=== PATIENT | male | born 1940 | race Caucasian/White ===

== ENCOUNTER → 2017-05-03 | Outpatient (CLI) | payer MEDICARE, OTHER ==
[2017-05-03 12:36] LABS: BASOPHILS % (AUTO) 0.3 %; EOSINOPHILS # (AUTO) 0.1 10^3/uL (0.0-0.7); EOSINOPHILS % (AUTO) 1.6 %; HCT - HEMATOCRIT 43.2 % (42.0-52.0); HGB - HEMOGLOBIN 14.8 g/dL (14.0-18.0); LYMPHOCYTES # (AUTO) 0.7 10^3/uL (1.5-3.5); LYMPHOCYTES % (AUTO) 12.5 %; MEAN CORPUSCULAR HEMOGLOBIN 31.7 pg (27.0-31.0); MEAN CORPUSCULAR HGB CONC 34.2 g/dL (32.0-36.0); MEAN CORPUSCULAR VOLUME 92.6 fL (80.0-94.0); MEAN PLATELET VOLUME 9.7 fL (7.4-11.4); MONOCYTES # (AUTO) 0.5 10^3/uL (0.0-1.0); MONOCYTES % (AUTO) 7.9 %; NEUTROPHILS # (AUTO) 4.5 10^3/uL (1.5-6.6); NEUTROPHILS % (AUTO) 77.7 %; RED BLOOD COUNT 4.67 10^6/uL (4.70-6.10); RED CELL DISTRIBUTION WIDTH 13.3 % (12.0-15.0); UNCORRECTED WHITE BLOOD COUNT 5.8 x10^3/uL; WHITE BLOOD COUNT 5.8 x10^3/uL (4.8-10.8)
[2017-05-03 13:08] LABS: ALBUMIN/GLOBULIN RATIO 1.2 (1.0-2.2); BILIRUBIN,TOTAL 0.5 mg/dL (0.2-1.0); BUN - BLOOD UREA NITROGEN 17 mg/dL (6-20); CALCIUM 8.8 mg/dL (8.5-10.3); CARBON DIOXIDE - CO2 26 mmol/L (21-32); CHLORIDE 104 mmol/L (101-111); CHOL/HDL RATIO 2.4 (<5.0); CHOLESTEROL 119 mg/dL; CREATININE 0.8 mg/dL (0.6-1.2); GFR - MDRD 94 (>89); GLUCOSE 115 mg/dL (70-100); HDL CHOLESTEROL 49 mg/dL; LDL/HDL RATIO 1.2 (<3.6); POTASSIUM 3.9 mmol/L (3.5-5.0); SODIUM 136 mmol/L (135-145); TOTAL PROTEIN 6.8 g/dL (6.7-8.2); TRIGLYCERIDES 58 mg/dL; VLDL CHOLESTEROL 12 mg/dL
[2017-05-03 13:21] LABS: HEMOGLOBIN A1C 0.7 g/dL
== END ==
LOC: LAB.N 08:00
PROVIDERS: ATTEND Internal Medicine
DX: E11.9 Type 2 diabetes mellitus without complications (principal); E78.5 Hyperlipidemia, unspecified; I10 Essential (primary) hypertension; I25.10 Atherosclerotic heart disease of native coronary artery without angina pectoris
CPT/HCPCS: 36415; 80053; 80061; 83036; 84443; 85025

== ENCOUNTER 2017-10-15 08:00 | Outpatient (CLI) | payer MEDICARE, OTHER ==
[2017-10-15 14:22] LABS: HB2 TOTAL 15.9 g/dL; HEMOGLOBIN A1C 0.69 g/dL; HEMOGLOBIN A1C % 6.1 % (4.6-6.2)
== END 2017-10-15 08:01 | disposition home or self-care (01) ==
LOC: LAB.N 08:00
PROVIDERS: ATTEND Internal Medicine
DX: E11.9 Type 2 diabetes mellitus without complications (principal)
CPT/HCPCS: 36415; 83036

== ENCOUNTER 2018-04-27 14:00 | Outpatient (CLI) | payer MEDICARE, OTHER | END 2018-04-27 14:01 | disposition critical access hospital (66) | LOC: EMS 14:00 | PROVIDERS: ATTEND Surgery | DX: R46.4 Slowness and poor responsiveness (principal); R45.1 Restlessness and agitation | CPT/HCPCS: A0425; A0427 ==

== ENCOUNTER 2018-04-27 14:04 | Emergency (ER) | payer MEDICARE, OTHER ==
--- NOTE | 2018-04-27 14:15 | ED Physician Documentation ---
PD HPI ALTERED MENTAL STATUS - Stated complaint Stated Complaint: UNRESPONSIVE - Chief complaint Chief Complaint: Neuro - History obtained from History obtained from: Patient - History of Present Illness Timing - onset: Today Timing - duration: Minutes Timing - details: Abrupt onset, Still present Quality / character: Unresponsive Associated symptoms: Other (acting abnormal right before procedure) Contributing factors: Other (occurred in conjuction with administration of lid ocaine for a biopsy of on the posterior neck.) Basline status: Alert and oriented X 3, Ambulatory, Independent Treatment DRAWING IN HAND: Accucheck (66) Similar symptoms before: Has not had sx before Recently seen: Clinic - Additional information Additional information: 77-year-old male was in the surgeon's office today getting a biopsy done on his neck when shortly after administration of lidocaine the patient became unresponsive. He is remained unresponsive and has some sonorous respirations. He is brought to the emergency department now for evaluation. The injection of lidocaine was at about 1245 today. Review of Systems Unable to obtain: Unresponsive PD PAST MEDICAL HISTORY - Past Medical History Cardiovascular: Hypertension, High cholesterol, NC Respiratory: None Endocrine/Autoimmune: None GI: None : None HEENT: None Psych: None Musculoskeletal: Osteoarthritis, Chronic back pain Derm: Other - Past Surgical History Past Surgical History: Yes General: Appendectomy, Other Ortho: Knee replacement, Shoulder arthroplasty, Other Derm: Skin cancer surgery - Present Medications Home Medications: Ambulatory Orders Medication Instructions Recorded Confirmed Aspirin 325 mg ORAL DAILY 05/29/14 05/29/14 Atorvastatin Calcium [Lipitor] 80 mg ORAL DAILY 05/29/14 05/29/14 Carvedilol [Coreg] 12.5 mg ORAL DAILY 05/29/14 05/29/14 Metoprolol Tartrate 25 mg ORAL DAILY 05/29/14 05/29/14 Oxycodone HCl/Acetaminophen 1 each PO Q4HR PRN #10 tablet 05/29/14 [Percocet 5-325 mg Tablet] Simvastatin [Zocor] 0 mg ORAL DAILY 05/29/14 05/29/14 cephALEXin [Keflex] 500 mg PO Q6H #28 capsule 05/29/14 - Allergies Allergies/Adverse Reactions: Allergies Allergy/AdvReac Type Severity Reaction Status Date / Time No Known Drug Allergies Allergy Verified 05/29/14 15:46 - Social History Does the pt smoke?: No Smoking Status: Never smoker Does the pt drink ETOH?: No Does the pt have substance abuse?: No - Immunizations Immunizations are current?: No Immunizations: TDAP >10years/unknown PD ED PE NORMAL - Vitals Vital signs reviewed: Yes (tachy and hypertensive) - General General: Well developed/nourished, Other (eyes closed not responding ) - HEENT HEENT: Atraumatic, PERRL, EOMI - Neck Neck: Supple, no meningeal sign - Cardiac Cardiac: Other (tachy to 120 ) - Respiratory Respiratory: No respiratory distress, Clear bilaterally - Abdomen Abdomen: Soft, Non tender - Back Back: No CVA TTP, No spinal TTP - Derm Derm: Normal color, Warm and dry, No rash - Extremities Extremities: No deformity, No edema - Neuro Neuro: Other (pupils are symetric and reactive. The patient is breathing, protecting his airway (moves away from tongue depressor) but he is mouth breathing. He does not respond to voice. He moves all ext ) Eye Opening: To Pain Motor: Localizes to Pain Verbal: Inappropriate GCS Score: 10 Results - Vitals Vitals: Vital Signs - 24 hr 04/27/18 14:10 Temperature 36.5 C Heart Rate 120 H Respiratory 22 Rate Blood Pressure 177/85 H O2 Saturation 94 Oxygen O2 Source Room air - EKG (time done) 1438 Rate: Rate (enter#) (115) Rhythm: Sinus tachycardia Intervals: LBBB Ischemia: ST elevation c/w ischemia Compare to prior EKG: Old EKG unavailable Computer interpretation: Agree with computer - Labs Labs: Laboratory Tests 04/27/18 04/27/18 04/27/18 14:10 14:10 14:10 WBC 6.8 RBC 4.45 L Hgb 14.2 Hct 41.4 L MCV 93.0 MCH 32.0 H MCHC 34.4 RDW 13.2 Plt Count 162 MPV 8.3 Neut # (Auto) 4.9 Lymph # (Auto) 1.1 L [place] # (Auto) 0.7 Eos # (Auto) 0.1 Baso # (Auto) 0.0 Absolute Nucleated RBC 0.00 Nucleated RBC % 0.0 PT 11.7 INR 1.0 Sodium 138 Potassium 3.4 L Chloride 102 Carbon Dioxide 28 Anion Gap 8.0 BUN 27 H Creatinine 1.0 Estimated GFR (MDRD) 73 L Glucose 140 H Lactic Acid Calcium 8.7 Total Bilirubin 0.6 AST 25 ALT 22 Alkaline Phosphatase 58 Troponin I Total Protein 6.6 L Albumin 3.7 Globulin 2.9 Albumin/Globulin Ratio 1.3 Lipase 38 04/27/18 04/27/18 14:10 14:31 WBC RBC Hgb Hct MCV MCH MCHC RDW Plt Count MPV Neut # (Auto) Lymph # (Auto) [place] # (Auto) Eos # (Auto) Baso # (Auto) Absolute Nucleated RBC Nucleated RBC % PT INR Sodium Potassium Chloride Carbon Dioxide Anion Gap BUN Creatinine Estimated GFR (MDRD) Glucose Lactic Acid 2.1 Calcium Total Bilirubin AST ALT Alkaline Phosphatase Troponin I < 0.04 Total Protein Albumin Globulin Albumin/Globulin Ratio Lipase - Rads (name of study) CT head without Radiology: Prelim report reviewed (Impression: No acute intracranial CT abnormality.), EMP read indepedently, See rad report PD MEDICAL DECISION MAKING - ED course Complexity details: reviewed old records, reviewed results, re-evaluated patient, considered differential ED course: 77-year-old male was in his dermatology clinic today getting a procedure done on his left occiput when shortly after injection of the local anesthetic lidocaine he became unresponsive. He has been unresponsive since and has been transported to the emergency department. Patient arrives with a sinus tachycardia and a left bundle branch block with a prolonged QT interval. He is administered dexamethasone as an adjunct therapy for drug reaction. He is admin istered magnesium sulfate for prolonged QT interval and [facility] emergency department is contacted required transfer for evaluation of acute NC. The patient's presentation was concerning for intracranial hemorrhage and immediately CT scan was obtained without evidence of bleed. The patient's presentation is inconsistent with any typical medication reaction and has lasted. His presentation is atypical for NC. I did consider atypical seizure as a possibile etiology as well. Further history of the events is communicated by the surgeon who indicates that the patient underwent biopsy today and this was done as a staged procedure and the patient was normal and himself initially in the room but he appeared to fall asleep about the time of the procedure and he was cooperative with positioning. At the conclusion of the procedure the patient appeared to be sleeping and awoke a bit groggy but was talking. The surgeon left the room only to have the nurse call him back in to find the patient not responsive. Seizure activity was not witnessed. The biopsy site was not closed and the margins were clear. Departure - Departure Disposition: Transfer Acute Care Hosp Clinical Impression: Acute non-ST elevation myocardial infarction (NSTEMI), Acute alteration in mental status Condition: Critical Discharge Date/Time: 04/27/18 15:39
[2018-04-27 14:18] LABS: BASOPHILS % (AUTO) 0.4 %; EOSINOPHILS # (AUTO) 0.1 10^3/uL (0.0-0.7); EOSINOPHILS % (AUTO) 1.1 %; HGB - HEMOGLOBIN 14.2 g/dL (14.0-18.0); LYMPHOCYTES # (AUTO) 1.1 10^3/uL (1.5-3.5); LYMPHOCYTES % (AUTO) 16.8 %; MEAN CORPUSCULAR HGB CONC 34.4 g/dL (32.0-36.0); MEAN PLATELET VOLUME 8.3 fL (7.4-11.4); MONOCYTES # (AUTO) 0.7 10^3/uL (0.0-1.0); NEUTROPHILS # (AUTO) 4.9 10^3/uL (1.5-6.6); NEUTROPHILS % (AUTO) 71.7 %; PLT - PLATELET COUNT 162 10^3/uL (130-450); RED BLOOD COUNT 4.45 10^6/uL (4.70-6.10); RED CELL DISTRIBUTION WIDTH 13.2 % (12.0-15.0); WHITE BLOOD COUNT 6.8 x10^3/uL (4.8-10.8)
[2018-04-27 14:25] LABS: PT - PROTHROMBIN TIME 11.7 secs (9.9-12.6)
[2018-04-27 14:30] LABS: ALBUMIN 3.7 g/dL (3.2-5.5); ALBUMIN/GLOBULIN RATIO 1.3 (1.0-2.2); BILIRUBIN,TOTAL 0.6 mg/dL (0.2-1.0); CALCIUM 8.7 mg/dL (8.5-10.3); TOTAL PROTEIN 6.6 g/dL (6.7-8.2)
--- NOTE | 2018-04-27 14:31 | CT Report ---
Reason: sudden altered consciousness Procedure Date: 04/27/2018 Accession Number: [id number] / [id number] Procedure: CT - Head W/O CPT Code: FULL RESULT: EXAM: CT HEAD EXAM DATE: 04/27/2018 02:23 PM. CLINICAL HISTORY: Confusion. COMPARISON: None. TECHNIQUE: Multiaxial CT images were obtained from the foramen magnum to the vertex. Reformats: Sagittal and coronal. IV contrast: None. In accordance with CT protocol optimization, one or more of the following dose reduction techniques were utilized for this exam: automated exposure control, adjustment of mA and/or KV based on patient size, or use of iterative reconstructive technique. FINDINGS: Parenchyma: No intraparenchymal hemorrhage. No evidence of mass, midline shift, or CT findings of infarction. Campos-white differentiation is distinct. Extraaxial Spaces: Normal for age. No subdural or epidural collections identified. Ventricles: Normal in size and position. Sinuses and Orbits: There is chronic right maxillary sinusitis. Bones: No evidence of fracture or calvarial defect. Other: None. IMPRESSION: No acute intracranial CT abnormality. [facility]
[2018-04-27 14:32] VITALS: BP 177/85
[2018-04-27] MEDS: DEXAMETHASONE 10 MG/ML VIAL IVP STA (14:36)
[2018-04-27] MEDS: MAGNESIUM SULFATE 2 GRAM 2 GM/50 ML BAG IV ONE (14:51)
[2018-04-27] MEDS ORDERED: HEPARIN 25000UNITS/500ML (D5W) 25,000 UNIT/500 ML BAG IV ONE (14:56)
[2018-04-27] MEDS: HEPARIN 25000UNITS/500ML (D5W) 25,000 UNIT/500 ML BAG IV STA (15:18)
== END 2018-04-27 15:39 | disposition short-term general hospital (02) ==
LOC: ED 14:04
DX: I21.4 Non-ST elevation (NSTEMI) myocardial infarction (principal); R40.4 Transient alteration of awareness; R00.0 Tachycardia, unspecified; I44.7 Left bundle-branch block, unspecified; I10 Essential (primary) hypertension; I25.2 Old myocardial infarction; E78.00 Pure hypercholesterolemia, unspecified; Z96.659 Presence of unspecified artificial knee joint; Z79.82 Long term (current) use of aspirin
CPT/HCPCS: 36415; 70450; 80053; 83605; 83690; 84484; 85025; 85610; 93005; 96365; 96375; 99284; 99285

== ENCOUNTER 2018-04-27 15:23 | Outpatient (CLI) | payer MEDICARE, OTHER | END 2018-04-27 15:24 | disposition short-term general hospital (02) | LOC: EMS 15:23 | PROVIDERS: ATTEND Surgery | DX: I21.9 Acute myocardial infarction, unspecified (principal) | CPT/HCPCS: A0425; A0427 ==

== ENCOUNTER 2018-05-03 08:00 | Outpatient (CLI) | payer MEDICARE, OTHER ==
[2018-05-03 13:54] LABS: BASOPHILS % (AUTO) 0.4 %; EOSINOPHILS # (AUTO) 0.2 10^3/uL (0.0-0.7); LYMPHOCYTES # (AUTO) 0.6 10^3/uL (1.5-3.5); LYMPHOCYTES % (AUTO) 10.9 %; MEAN CORPUSCULAR HEMOGLOBIN 31.7 pg (27.0-31.0); MEAN CORPUSCULAR HGB CONC 33.9 g/dL (32.0-36.0); MEAN CORPUSCULAR VOLUME 93.6 fL (80.0-94.0); MEAN PLATELET VOLUME 9.3 fL (7.4-11.4); MONOCYTES # (AUTO) 0.4 10^3/uL (0.0-1.0); MONOCYTES % (AUTO) 7.2 %; NEUTROPHILS # (AUTO) 4.6 10^3/uL (1.5-6.6); NEUTROPHILS % (AUTO) 77.5 %; PLT - PLATELET COUNT 175 10^3/uL (130-450); RED BLOOD COUNT 4.42 10^6/uL (4.70-6.10); RED CELL DISTRIBUTION WIDTH 13.2 % (12.0-15.0); WHITE BLOOD COUNT 5.9 x10^3/uL (4.8-10.8)
[2018-05-03 14:14] LABS: HB2 TOTAL 15.7 g/dL; HEMOGLOBIN A1C 0.68 g/dL; HEMOGLOBIN A1C % 6.1 % (4.6-6.2)
[2018-05-03 14:25] LABS: ALBUMIN 3.7 g/dL (3.2-5.5); ALBUMIN/GLOBULIN RATIO 1.2 (1.0-2.2); ALKALINE PHOSPHATASE 61 IU/L (42-121); ALT ALANINE AMINOTRANSFERASE 29 IU/L (10-60); AST ASPARTATE AMINOTRANSFERASE 26 IU/L (10-42); BUN - BLOOD UREA NITROGEN 16 mg/dL (6-20); CALCIUM 8.9 mg/dL (8.5-10.3); CARBON DIOXIDE - CO2 31 mmol/L (21-32); CHLORIDE 99 mmol/L (101-111); CHOL/HDL RATIO 2.4 (<5.0); CHOLESTEROL 107 mg/dL; CREATININE 0.6 mg/dL (0.6-1.2); GFR - MDRD 131 (>89); GLUCOSE 124 mg/dL (70-100); HDL CHOLESTEROL 45 mg/dL; LDL CHOLESTEROL,CALCULATED 41 mg/dL; LDL/HDL RATIO 0.9 (<3.6); SODIUM 135 mmol/L (135-145); TOTAL PROTEIN 6.7 g/dL (6.7-8.2); VLDL CHOLESTEROL 21 mg/dL
== END 2018-05-03 08:01 | disposition home or self-care (01) ==
LOC: LAB.N 08:00
PROVIDERS: ATTEND Internal Medicine
DX: E11.9 Type 2 diabetes mellitus without complications (principal); E78.5 Hyperlipidemia, unspecified; I25.10 Atherosclerotic heart disease of native coronary artery without angina pectoris; I10 Essential (primary) hypertension
CPT/HCPCS: 36415; 80053; 80061; 83036; 83721; 84443; 85025

== ENCOUNTER 2019-06-23 17:31 | Outpatient (CLI) | payer MEDICARE, OTHER | END 2019-06-23 17:32 | disposition E | LOC: EMS 17:31 | PROVIDERS: ATTEND Surgery | DX: Z66 Do not resuscitate ==